=== PATIENT | male | born 1975 | race Two or more races ===

== ENCOUNTER → 2019-11-01 15:13 | Outpatient (CLI) | payer BC, SELFPAY ==
--- NOTE | 2019-11-01 15:13 | CT_ITS ---
PROCEDURE: CT SINUS WO CON CLINICAL HISTORY: DEVIATED SEPTUM Nasal septal deviation COMPARISON: No exams were available for comparison TECHNIQUE: Axial images obtained with sagittal and coronal reformats. All CT scans at the facility use one or more dose reduction, viz: automated exposure control, ma/kV adjustment per patient size (including targeted exams where dose is matched to indication, i.e. head), or iterative reconstruction technique. FINDINGS: Anteriorly, there is mild rightward nasal septal deviation. There is moderate leftward nasal septal deviation with a prominent nasal spur projecting toward the left causing narrowing of the left nasal canal. The ostiomeatal complexes are patent. No significant mucosal thickening or sinus air-fluid levels evident. There is mild mucosal thickening of the left maxillary sinus superiorly. The ethmoid, frontal, and sphenoid sinuses have an unremarkable appearance. No mastoid effusion. Artifact is present from right ear piercing. 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 The orbits have an unremarkable appearance IMPRESSION: Moderate left-sided nasal septal deviation with septal spur projecting toward the left causing moderate narrowing of the nasal canal on the left. Anteriorly there is some mild rightward nasal septal deviation. Mild left TMJ osteoarthritic change Dictated by: Ahsan Prince MD 11/01/2019 18:08 Electronically signed by Ahsan Prince MD in [place] 11/01/2019 18:08
== END ==
PROVIDERS: PCP Family Medicine; Visit Provider Otolaryngology
DX: J34.2 Deviated nasal septum (principal)
CPT/HCPCS: 70486

== ENCOUNTER → 2019-12-21 09:23 | Outpatient (CLI) | payer BC, SELFPAY ==
--- NOTE | 2019-12-21 09:44 | ECG_ITS ---
APPROVED REPORT Exam: Resting ECG HR:73 bpm ECG Measurements Heart Rate 73 AXES NV 174 P 54 QRSd 84 QRS 43 QT 364 T 40 QTc 401 <Conclusion> Normal sinus rhythm Normal ECG Electronically signed by : Cayden Ho, 12/22/2019 08:21:14
[2019-12-21 09:56] LABS: Basophils % 0.4 % (0.1-2.0); Eosinophils # 0.2 K/mm3 (0.0-0.4); Eosinophils % 2.6 % (0.1-12.0); Hematocrit 42.6 % (42.0-52.0); Lymphocytes # 1.8 K/mm3 (0.7-4.5); Lymphocytes % 31.2 % (10-50); Mean Corpuscular Hemoglobin 29.5 pg (27.0-31.2); Mean Corpuscular Volume 89.5 fl (80-94); Mean Platelet Volume 8.8 fl (7.4-10.4); Monocytes # 0.3 K/mm3 (0.1-1.0); Monocytes % 4.3 % (1.7-9.3); Neutrophils # 3.6 K/mm3 (1.8-7.8); Neutrophils % 61.6 % (37.0-80.0); Platelet Count 191 K/mm3 (142-424); Red Blood Count 4.76 M/mm3 (4.60-6.20); Red Cell Distribution Width 13.9 % (11.5-17.5); White Blood Count 5.8 K/mm3 (4.8-10.8)
[2019-12-21 10:36] LABS: Alanine Aminotransferase 21 U/L (12-78); Albumin Level 4.4 g/dl (3.5-5.0); Albumin/Globulin Ratio 1.6 (1.1-1.8); Alkaline Phosphatase 89 U/L (38-126); Anion Gap 8.4 mEq/L (5-15); Aspartate Amino Transferase 30 U/L (17-59); Bilirubin,Total 0.5 mg/dl (0.2-1.3); Blood Urea Nitrogen 24 mg/dl (9-20); Calcium 9.2 mg/dl (8.4-10.2); Carbon Dioxide 24 mmol/L (22.0-30.0); Chloride 109 mmol/L (98-107); Estimated Glomerular Filt Rate 122 ml/min (>60); GFR (African American) 148 ML/MIN (>60); Globulin 2.7 g/dL (1.3-3.2); Glucose 117 mg/dl (74-100); Potassium 4.4 mmoL/L (3.5-5.1); Sodium 137 mmol/L (136-145); Total Protein,Serum 7.1 g/dl (6.3-8.2)
[2019-12-22 13:55] LABS: Covid-19 Nasal PCR Sendout Lex NOT DETECTED
== END ==
PROVIDERS: Visit Provider Otolaryngology
DX: Z01.818 Encounter for other preprocedural examination (principal); J34.2 Deviated nasal septum; J32.0 Chronic maxillary sinusitis
CPT/HCPCS: 36415; 80053; 85025; 93005; U0003

== ENCOUNTER 2019-12-23 08:08 | Day surgery (SDC) | payer BC, SELFPAY ==
[2019-12-21 13:57] VITALS: BMI 33.6
[2019-12-23] VITALS (12 sets, daily range): BP systolic 113–139; BP diastolic 70–88; PULSE 74–94; RESP 12–18; TEMP 36.2–36.5; O2SAT 94–99
--- NOTE | 2019-12-23 11:17 | HMH.ANESCL ---
[facility] Anesthesia Checklist - Patient Identification Patient Identification: Arm Band - Structural Data Admitted From: Home Planned Operative Procedure/s: nasal septoplasty with FESS Consent for Planned Operative Procedure(s) Verified: Yes Verified Documents: Surgical Consent, History and Physical - NPO Status Verified Time NPO: 00:00 - Additional verifications Anesthesia Reactions: No Hx Blood Transfusions: No Blood Transfusion Reaction: No - Airway Assessment C-Spine Mobility Assessed: Yes (mp2) TMJ Mobility Assessed: Yes Dentition: Good Dentition - Neurological Assessment Level of Consciousness: Awake, Alert - Anesthesia Plan Anesthesia Risk discussed: Yes Anesthesia Plan: Verified ASA Class: II Anesthesia Type: General [facility] History I have reviewed the patient's past medical history: Yes Medical History: Denies:: Cancer, Diabetes Mellitus Type 1, Diabetes Mellitus Type 2, Internal Pacemaker, MRSA, Seizures *Have you ever received a pneumonia vaccine?: No *Have you received a flu vaccine this season?: No Other Medical History: Denies: Blood Transfusion Reaction Anesthesia experience/problems:: nac Laterality Cases: Right: Carpal Tunnel Release Other Surgeries: Yes: Other. No: Pacemaker Amputation: No Fractures: No - *Social History Educational Level: Completed High School Smoking Status: Former smoker Tobacco Type: cigarettes Alcohol Intake: current Alcohol Intake Frequency:: holidays/special occasions only Substance Use Type: denies use *Occupational Status:: employed Housing: house Household Members: significant other *Travel in the last 8 weeks: None Family Hx:: Cancer, Diabetes, Hyperlipidemia, Thyroid Disorder, Alcoholism
--- NOTE | 2019-12-23 11:18 | P.PN_ITS ---
[facility] Anesthesia Record Part I Intake, IV Amount: 1,400 Estimated blood loss (mL): 5 Urine output (mL): 0 Blood Pressure: 134/83 SaO2: 96 Pulse Rate: 81 Respiratory Rate: 16 Temperature: 97.6 F Patient is:: Drowsy, Stable (1115)
--- NOTE | 2019-12-23 12:48 | HMH.OPNOTE ---
Date of procedure: 12/23/19 Pre-op Diagnosis:: 1. Deviated nasal septum with 90% nasal airflow blockage to the left 2. Chronic bilateral maxillary sinusitis with pressure discomfort in the maxillary sinuses and blockage of both maxillary ostiomeatal complexes Post-op Diagnosis:: same Procedure performed:: 1. Nasal septoplasty 2. Functional endoscopic sinus surgery with bilateral intranasal maxillary antrostomy with removal of tissue from both maxillary sinuses Surgeon:: Adam Murray MD DIE STORAGE CLERK:: Luis Beard Anesthesia: GETA Estimated blood loss (mL): 9 Operative findings:: same Operative note:: The face was prepped and draped the nose was decongested with topical cocaine and 4 cc of 2% lidocaine with epi were injected into the nasal septum and into both nasal antral eid. A left hemitransfixion incision was made in the mucoperichondrium and mucoperiosteum was elevated from both sides of the nasal septum. The quadrangular cartilage was fully mobilized and from the maxillary crest and the vomer. There was a very large vomerine spur to the left as well as deviation of the quadrangular cartilage to the left inferiorly and posteriorly. The deviated quadrangular cartilage was removed. The large vomerine spur was removed at in the maxillary crest was straightened. When that was done the septum could be realigned in the midline it was held in that position with transfixion and hemitransfixion chromic sutures. Using the 0 degrees scope and endoscopic sinus techniques a right intranasal maxillary antrostomy was done. The right ostiomeatal complex was cleared of polypoid disease. And mucus was evacuated from the right maxillary sinus. The thickened mucosa was submitted from the right maxillary sinus. The findings in the left maxillary sinus were identical polypoid thickening was removed from the ostiomeatal complex and submitted. The sinus was thoroughly irrigated and all the trapped mucus was removed. The left ostiomeatal complex was opened. The patient tolerated the procedure well, Surgicel packing was placed in both ostiomeatal complexes. Bacitracin ointment was placed in the nasal vestibules. And a drip pad dressing was applied. Blood loss was less than 10 cc and the patient was sent to recovery in good general condition. Condition: stable Disposition: PACU Complications:: none
--- NOTE | 2019-12-23 16:57 | HMH.ANESII ---
[facility] Anesthesia Record Part II Discharge Time: 12:45 Destination: home PACU nurse assessment reviewed?: Yes Patient Condition:: Good Anesthesia Complications:: None Swallowing reflex intact?: Yes Cyanosis?: No Blood Pressure: 130/80 Pulse Rate: 90 Temperature: 97.2 F Mental Status: Alert & Oriented Pain level:: 4 Nausea and/or vomitting:: None Intake, IV Amount: 0
== END 2019-12-23 12:45 | disposition home or self-care (01) ==
LOC: OR 08:09
PROVIDERS: PCP Family Medicine; Visit Provider Otolaryngology
PROC: (CPT 30520; principal; 2019-12-23 09:45)
DX: J34.2 Deviated nasal septum (principal); J32.0 Chronic maxillary sinusitis
CPT/HCPCS: 31267; 30520; 96374; 96375; J2405; J2710

== ENCOUNTER 2021-04-28 15:30 | Emergency (ER) | payer BC, SELFPAY ==
[2021-04-28 16:14] VITALS: BP 143/102; PULSE 76; RESP 14; TEMP 36.9; O2SAT 98; BMI 27.3
--- NOTE | 2021-04-28 16:35 | HMH.EDUTC ---
[facility] [place] Clinical Impression: Exposure to COVID-19 virus Sinusitis Qualifiers: Sinusitis location: unspecified location Chronicity: acute Recurrence: non-recurrent Qualified Code(s): J01.90 - Acute sinusitis, unspecified Disposition: Home, Self-Care Condition on Discharge: Good Instructions: DI for Sinusitis, DI for COVID-19 (Suspected or Confirmed ), Preventing the Spread of Coronavirus Discharge Instructions Additional Instructions: Drink plenty of fluids. Take tylenol or ibuprofen for pain or fever. Take the medications as directed. Follow up with your regular doctor. GO TO THE ER FOR ANY WORSENING SYMPTOMS Quarantine until you know the results of your covid-19 test. If it is positive, the health department should call you and give you further instructions about your length of Quarantine and other things. Notify your school or workplace of your results and follow their instructions regarding return to work/school. Don't start the oral steroids (prednisone) until tomorrow, since you had the shot here today. Prescriptions: Amoxicillin/Potassium Clav [Augmentin 875-125 Tablet] 1 tab PO Q12H 10 Days #20 tab [email or web address] predniSONE [Prednisone 20mg Tab] 20 mg PO BID 4 Days #8 tab Transmission [facility]: [email or web address] Benzonatate [Tessalon Perle 100mg Cap] 100 mg PO TIDP PRN #30 cap PRN Reason: Cough Transmission Status: [facility] Referrals: Lizbeth Madden MD [Primary Care Provider] - Forms: Work/School Release Time of Disposition: 17:07 Medical Decision Making - Medical Records Medical records reviewed: No: I reviewed the patient's medical records. - Luan Inquiry Pt receiving controlled substance: No Vital Signs: 04/28/21 16:14 04/28/21 17:04 Temperature 98.4 F 98 F Temperature Source Oral Pulse Rate 76 Pulse Rate [Left] 76 Respiratory Rate 14 16 Blood Pressure 143/102 H Blood Pressure [Right Arm] 143/102 H Blood Pressure Mean [Right Arm] 115 02 Sat by Pulse Oximetry 98 Orders (Tests/Meds): ED MEDICATIONS Discontinued Medications Generic Name Dose Route Start Last Admin Trade Name Freq PRN Reason Stop Dose Admin Ceftriaxone Sodium 1 gm 04/28/21 16:42 04/28/21 17:03 Ceftriaxone 1gm Vial IM 04/28/21 16:43 1 gm ONCE ONE Administration Lidocaine HCl 0 ml 04/28/21 16:42 04/28/21 17:03 Lidocaine 1% 5ml Pf Vial IM 04/28/21 16:43 2.5 ml ONCE ONE Administration Methylprednisolone Sodium Succinate 125 mg 04/28/21 16:42 04/28/21 17:03 Methylprednisolone Sod Succ 125mg Vial IM 04/28/21 16:43 125 mg ONCE ONE Administration [facility] [place] - General Stated complaint: covid test, poss sinus inf Time Seen by Provider: 04/28/21 16:35 Mode of Arrival: Ambulatory Source of Information: Patient Limitations: No Limitations Description of Symptoms (Recalled from Triage Doc. by RN): LOSS OF TASTE AND SMELL HEENT Symptoms (Recalled from RN notes): Yes (LOSS OF TASTE AND SMELL) Resp Symptoms (Recalled from RN notes): No Skin Symptoms (Recalled from RN notes): No MS Symptoms (Recalled from RN notes): No Functional Status (Recalled from RN notes): NA - History of Present Illness Provider Complaint: He states that for the past 2 days he has had a worsening sinus infection. He has a history of getting sinus infections kind of frequently. He denies any known exposure to covid-19. 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 - Related Data Home Medications Medication Instructions Recorded Confirmed [id number] 250 1 tab PO Q4-6H PRN 10/12/19 04/03/20 mg-250 mg-65 mg tablet loratadine 5 mg-pseudoephedrine ER 1 tab PO Q12H 10/12/19 04/03/20 120 mg tablet,extended release,12hr Naratriptan HCl [Amerge] 5 mg PO NEEDED PRN 12/21/19 04/03/20 Previous Rx's Medication Instructions Re
[2021-04-28 17:04] VITALS: BP 143/102; PULSE 76; RESP 16; TEMP 36.6
--- NOTE | 2021-04-30 14:30 | PC.NURSE ---
PATIENT'S S/O NOTIFIED OF POSITIVE COVID TEST AT THIS TIME
== END 2021-04-28 17:26 | disposition home or self-care (01) ==
PROVIDERS: Emergency Provider Nurse Practitioner Family; PCP Family Medicine
DX: U07.1 COVID-19 (principal); J01.90 Acute sinusitis, unspecified; Z87.891 Personal history of nicotine dependence
CPT/HCPCS: 96372; 99202; C9803; G0463; U0003; U0005

== ENCOUNTER → 2021-06-12 10:45 | Outpatient (CLI) | payer BC, SELFPAY ==
--- NOTE | 2021-06-12 10:50 | XR_ITS ---
PROCEDURE: XR SOFT TISSUE NECK CLINICAL INDICATION: DISORDER OF HYOID BONE COMPARISON: No exams were available for comparison FINDINGS: AP and lateral films show straightening of the normal curvature of the cervical spine suggesting muscle spasm. C1 through C7 appear intact. The hyoid bone appears intact. The thyroid cartilage is grossly normal. The prevertebral soft tissues are normal. IMPRESSION: Possible muscle spasm of the neck, no other significant abnormality noted Dictated by: Dr. Vimal Henderson MD 06/12/2021 11:26 Dr. Vimal Henderson MD in [place] 06/12/2021 11:26
== END ==
PROVIDERS: PCP Family Medicine; Visit Provider Family Medicine
DX: M89.9 Disorder of bone, unspecified (principal)
CPT/HCPCS: 70360

== ENCOUNTER → 2021-08-29 16:29 | Outpatient (CLI) | payer BC, SELFPAY ==
[2021-08-29 18:10] LABS: Basophils # 0.1 K/mm3 (0-0.2); Eosinophils # 0.1 K/mm3 (0.0-0.4); Eosinophils % 2.3 % (0.1-12.0); Hematocrit 43.9 % (42.0-52.0); Hemoglobin 14.6 g/dL (14.1-18.0); Lymphocytes # 2.2 K/mm3 (0.7-4.5); Mean Corpuscular HGB Conc 33.3 g/dL (31.8-35.4); Mean Corpuscular Hemoglobin 29.6 pg (27.0-31.2); Mean Platelet Volume 9.6 fl (7.4-10.4); Monocytes # 0.3 K/mm3 (0.1-1.0); Monocytes % 5.6 % (1.7-9.3); Neutrophils # 3.4 K/mm3 (1.8-7.8); Neutrophils % 55.2 % (37.0-80.0); Platelet Count 192 K/mm3 (142-424); Red Blood Count 4.93 M/mm3 (4.60-6.20); Red Cell Distribution Width 14.3 % (11.5-17.5); White Blood Count 6.2 K/mm3 (4.8-10.8)
== END ==
PROVIDERS: PCP Family Medicine; Visit Provider Physician Assistant
DX: Z20.822 Contact with and (suspected) exposure to COVID-19 (principal)
CPT/HCPCS: 36415; 85025; C9803; U0003; U0005

== ENCOUNTER 2021-09-18 09:22 | Emergency (ER) | payer BC, SELFPAY ==
[2021-09-18 10:30] VITALS: BP 128/92; PULSE 93; RESP 18; TEMP 36.8; O2SAT 98; BMI 27.3
[2021-09-18 11:15] LABS: Strep Scrn Group A (Rapid) Negative (Negative)
--- NOTE | 2021-09-18 11:26 | HMH.EDUTC ---
[facility] [place] Clinical Impression: Sinusitis Qualifiers: Sinusitis location: unspecified location Chronicity: unspecified Qualified Code(s): J32.9 - Chronic sinusitis, unspecified Disposition: Home, Self-Care Condition on Discharge: Good Instructions: Sinusitis, DI for Sinusitis, DI for Cough -- Adult Additional Instructions: Continue taking Cipro as prescribed *Monitor Temp, Over the counter Motrin or Tylenol as directed/as needed Tylenol every 4 hours and Motrin every 6 hours (as long as your family doctor has told you that you can take it) for fever or pain. and straight to ER if unable to lower temp less than 101.0 after medication given *Warm salt water gargles may help to soothe the throat *Throat Lozenges *Warm fluids like tea with honey may help to soothe the throat *Sleep elevated *Humidifier/Vaporizer *Flonase 2 sprays in each nostril daily but be aware that it may take 2-3 days before you notice improvement *Bromfed may cause drowsiness. Know how it effects you (your child) before driving, caring for small child, or sending your child to school. Not other antihistamines/allergy medications while taking bromfed Follow up IMMEDIATELY for new or worsening symptoms or no Noticeable improvement over the next 48-72 hours. 911 for difficulty breathing or swallowing You were tested for today for COVID19 your test result should be back in the next 24-72 hours, you may check your results on the [facility] portal if you have trouble logging on you may call support to help you If you are positive someone from the hospital will be calling you Make sure to take your Vitamins Vit. C Vit D and Zinc if you can take them Prescriptions: Brompheniramine/Pseudoephed/Dm [Bromfed Dm Cough Syrup] 5 - 10 ml PO Q46H PRN #150 ml PRN Reason: Cough Transmission Status: Received by [facility] Fluticasone Propionate [Flonase 50mcg nasal spray 16gm] 1 spr NS DAILY #1 each Transmission Status: Received by [facility] Referrals: Lizbeth Madden MD [Primary Care Provider] - As needed Forms: Work/School Release Medical Decision Making - Luan Inquiry Pt receiving controlled substance: No Luan was queried for this patient: No Vital Signs: 09/18/21 10:30 09/18/21 11:49 Temperature 98.2 F 98.2 F Temperature Source Oral Pulse Rate 93 H Pulse Rate [Right Brachial] 93 H Respiratory Rate 18 18 Blood Pressure 128/92 H Blood Pressure [Right Arm] 128/92 H Blood Pressure Mean [Right Arm] 104 Blood Pressure Source [Right Arm] Automatic Cuff Blood Pressure Position [Right Arm] Sitting 02 Sat by Pulse Oximetry 98 Oxygen Delivery Method Room Air - Lab Data Lab Results 09/18/21 10:36: Group A Strep Rapid Negative 09/18/21 11:31: Chlamy pneumoniae PCR Not detected, Adenovirus (PCR) Not detected, B. pertussis DNA (PCR) Not detected, Coronavirus OC43 (PCR) Detected A, Coronavirus HKU1 (PCR) Not detected, Coronavirus 229E (PCR) Not detected, Coronavirus NL63 (PCR) Not detected, Human Metapneumovir PCR Not detected, Influenza A (H1) PCR Not detected, Influ A (H1N1/09) PCR Not detected, Influenza A (H3) PCR Not detected, Influenza Type A (PCR) Not detected, Influenza Type B (PCR) Not detected, M. pneumoniae (PCR) Not detected, Parainfluenza 1 (PCR) Not detected, Parainfluenza 2 (PCR) Not detected, Parainfluenza 3 (PCR) Not detected, Parainfluenza 4 (PCR) Not detected, RSV (PCR) Not detected, Entero/Rhino (PCR) Not detected Orders (Tests/Meds): ED MEDICATIONS Discontinued Medications Generic Name Dose Route Start Last Admin Trade Name Sam PRN Reason Stop Dose Admin Ceftriaxone Sodium 1 gm 09/18/21 11:36 09/18/21 11:40 Ceftriaxone 1gm Vial IM 09/18/21 11:37 1 gm ONCE ONE Administration Lidocaine HCl 0 ml 09/18/21 11:36 09/18/21 11:40 Lidocaine 1% 5ml Pf Vial IM 09/18/21 11:37 2 ml ONCE ONE Administration Methylprednisolone Sodium Succinate 125 mg 09/18/21 11:36 09/18/21
[2021-09-18 11:49] VITALS: BP 128/92; PULSE 93; RESP 18; TEMP 36.8; O2SAT 98
[2021-09-18 12:15] LABS: Adenovirus,PCR Not Detected (NotDetected); Bordetella Pertussis Not Detected (NotDetected); Chlamydophila Pneumoniae, PCR Not Detected (NotDetected); Coronavirus 229E Not Detected (NotDetected); Coronavirus NL63 Not Detected (NotDetected); Coronovirus HKU1,PCR Not Detected (NotDetected); Human Metapneumovirus Not Detected (NotDetected); Influenza A, PCR Not Detected (NotDetected); Influenza AH1, 2009 Not Detected (NotDetected); Influenza AH1, PCR Not Detected (NotDetected); Influenza AH3,PCR Not Detected (NotDetected); Influenza B, PCR Not Detected (NotDetected); Mycoplasma Pneumoniae, PCR Not Detected (NotDetected); Parainfluenza 1, PCR Not Detected (NotDetected); Parainfluenza 2, PCR Not Detected (NotDetected); Parainfluenza 3, PCR Not Detected (NotDetected); Parainfluenza 4, PCR Not Detected (NotDetected); Respiratory Syncytial Virus Not Detected (NotDetected); Rhinovirus/Enterovirus Not Detected (NotDetected)
[2021-09-18 15:16] LABS: Coronavirus OC43 Detected (NotDetected)
== END 2021-09-18 11:53 | disposition home or self-care (01) ==
PROVIDERS: Emergency Provider Nurse Practitioner; PCP Family Medicine
DX: J32.9 Chronic sinusitis, unspecified (principal); Z20.822 Contact with and (suspected) exposure to COVID-19
CPT/HCPCS: 87430; 87486; 87581; 87632; 87798; 96372; 99202; C9803; G0463; J0696; U0003; U0005

== ENCOUNTER → 2021-11-13 10:38 | Outpatient (CLI) | payer BC, SELFPAY ==
[2021-11-13 11:01] LABS: Adenovirus,PCR Not Detected (NotDetected); Bordetella Pertussis Not Detected (NotDetected); Chlamydophila Pneumoniae, PCR Not Detected (NotDetected); Coronavirus 229E Not Detected (NotDetected); Coronavirus NL63 Not Detected (NotDetected); Coronavirus OC43 Not Detected (NotDetected); Coronovirus HKU1,PCR Not Detected (NotDetected); Human Metapneumovirus Not Detected (NotDetected); Influenza A, PCR Not Detected (NotDetected); Influenza AH1, 2009 Not Detected (NotDetected); Influenza AH1, PCR Not Detected (NotDetected); Influenza AH3,PCR Not Detected (NotDetected); Influenza B, PCR Not Detected (NotDetected); Mycoplasma Pneumoniae, PCR Not Detected (NotDetected); Parainfluenza 1, PCR Not Detected (NotDetected); Parainfluenza 2, PCR Not Detected (NotDetected); Parainfluenza 3, PCR Not Detected (NotDetected); Parainfluenza 4, PCR Not Detected (NotDetected); Respiratory Syncytial Virus Not Detected (NotDetected); Rhinovirus/Enterovirus Not Detected (NotDetected)
[2021-11-13 11:16] LABS: Basophils # 0.1 K/mm3 (0-0.2); Basophils % 0.9 % (0.1-2.0); Eosinophils # 0.1 K/mm3 (0.0-0.4); Eosinophils % 1.3 % (0.1-12.0); Hematocrit 43.4 % (42.0-52.0); Hemoglobin 14.4 g/dL (14.1-18.0); Lymphocytes # 1.6 K/mm3 (0.7-4.5); Lymphocytes % 17.1 % (10-50); Mean Corpuscular HGB Conc 33.2 g/dL (31.8-35.4); Mean Corpuscular Hemoglobin 30.1 pg (27.0-31.2); Mean Corpuscular Volume 90.7 fl (80-94); Mean Platelet Volume 9.8 fl (7.4-10.4); Monocytes # 0.5 K/mm3 (0.1-1.0); Monocytes % 5.7 % (1.7-9.3); Neutrophils # 6.8 K/mm3 (1.8-7.8); Platelet Count 153 K/mm3 (142-424); Red Blood Count 4.78 M/mm3 (4.60-6.20); Red Cell Distribution Width 14.8 % (11.5-17.5); White Blood Count 9.1 K/mm3 (4.8-10.8)
[2021-11-13 13:38] LABS: Strep Scrn Group A (Rapid) Negative (Negative)
== END ==
PROVIDERS: PCP Family Medicine; Visit Provider Nurse Practitioner
DX: Z11.52 Encounter for screening for COVID-19 (principal); J06.9 Acute upper respiratory infection, unspecified; J02.9 Acute pharyngitis, unspecified
CPT/HCPCS: 36415; 85025; 87430; 87486; 87581; 87632; 87798; C9803; U0003; U0005